=== PATIENT | male | born 2000 | race Caucasian/White ===

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

== ENCOUNTER 2022-09-14 11:58 | Inpatient (IN) | payer MEDICAID, SELFPAY ==
[2022-09-14] VITALS (8 sets, daily range): BP systolic 111–129; BP diastolic 61–91; PULSE 56–82; RESP 14–22; TEMP 36.4–37.1; O2SAT 97–100; BMI 16.7; BMI 17.2
--- NOTE | ~2022-09-14 | XR_ITS ---
EXAMINATION: XR CHEST CLINICAL INFORMATION: Status post chest tube removal COMPARISON: 09/17/2022 TECHNIQUE: Frontal view of the chest was obtained. FINDINGS: The right-sided pigtail catheter chest tube has been removed. The lungs are well expanded. There is no focal consolidation, edema, or effusion. No pneumothorax. The cardiomediastinal silhouette is within normal limits. No acute osseous abnormality. XR/XR chest 1V IMPRESSION: No acute pulmonary disease. No pneumothorax.
--- NOTE | ~2022-09-14 | XR_ITS ---
EXAMINATION: XR CHEST CLINICAL INFORMATION: Chest tube. COMPARISON: Chest radiograph dated 09/14/2022. TECHNIQUE: Frontal view of the chest was obtained. FINDINGS: Right-sided chest tube overlying the lung base. Tiny foci of adjacent soft tissue emphysema. Near-complete resolution of the previously seen right apical pneumothorax with a trace pneumothorax appearing to persist. No pleural effusion. Stable cardiomediastinal silhouette. No new airspace consolidation. XR/XR chest 1V IMPRESSION: 1. Right-sided chest tube with near-complete resolution of the previously seen right apical pneumothorax with a trace pneumothorax appearing to persist. 2. No new airspace consolidation.
--- NOTE | ~2022-09-14 | XR_ITS ---
EXAMINATION: XR CHEST CLINICAL INFORMATION: Chest pain COMPARISON: None available. TECHNIQUE: 2 views of the chest were obtained. FINDINGS: The cardiac and mediastinal contours are normal. There is a moderate right pneumothorax. No pleural effusion. Bony structures are unremarkable. XR/XR chest 2V IMPRESSION: Moderate right pneumothorax. Findings were communicated to Dr. Gonzalez by telephone on 09/14/2022 at 1336 hours.
--- NOTE | ~2022-09-14 | XR_ITS ---
EXAMINATION: XR CHEST CLINICAL INFORMATION: Follow-up right pneumothorax COMPARISON: 09/16/2022 TECHNIQUE: Frontal view of the chest was obtained. FINDINGS: Right-sided pigtail catheter in place. The lungs are well expanded. There is no focal consolidation, edema, or effusion. No definite pneumothorax identified. The cardiomediastinal silhouette is within normal limits. No acute osseous abnormality. XR/XR chest 1V IMPRESSION: Right-sided pigtail catheter in place. No definite pneumothorax identified.
--- NOTE | ~2022-09-14 | XR_ITS ---
EXAMINATION: XR CHEST CLINICAL INFORMATION: Follow-up right-sided pneumothorax. COMPARISON: Chest x-ray 07/17/2022. 3:25 PM TECHNIQUE: Frontal portable view of the chest was obtained. 5:02 PM FINDINGS: Right-sided chest tube in place with. Persistent small right apical pneumothorax unchanged in volume to prior exam today. No acute focal airspace opacity. No pleural effusion. Heart size normal. Cardiac mediastinal contours normal. No pulmonary vascular congestion XR/XR chest 1V IMPRESSION: Right-sided chest tube in place. Persistent small right apical pneumothorax unchanged since prior chest x-ray today.
--- NOTE | ~2022-09-14 | XR_ITS ---
EXAMINATION: XR CHEST CLINICAL INFORMATION: Follow-up pneumothorax COMPARISON: 09/15/2022 TECHNIQUE: Frontal view of the chest was obtained. FINDINGS: Lungs are well expanded. The right pigtail pleural drainage catheter is in stable position. There is a barely perceptible trace residual right apical pneumothorax without change since 09/15/2022. Lungs are clear. No airspace disease or pleural effusion. Cardiomediastinal silhouette has normal size and contour. Skeletal structures are normal. XR/XR chest 1V IMPRESSION: No new findings compared to 09/15/2022. There appears to be trace right apical pneumothorax with right chest tube in place.
--- NOTE | ~2022-09-14 | XR_ITS ---
EXAMINATION: XR CHEST CLINICAL INFORMATION: Post chest tube placement COMPARISON: None available. TECHNIQUE: Frontal view of the chest was obtained. FINDINGS: There is a pigtail chest tube at the right lung base. There is interval decrease in right pneumothorax. Small pneumothorax remains measuring maximum 1 cm at the right lung apex. The cardiac and mediastinal contours are normal. The lungs are clear. No pleural effusion. XR/XR chest 1V IMPRESSION: Interval decrease in right pneumothorax post chest tube placement.
--- NOTE | 2022-09-14 12:15 | ED_ITS ---
HPI - Chest Pain General Chief Complaint: General Medical <CYN Wilkins - Last Filed: 09/14/22 12:17> Stated Complaint: chest pains <CYN Wilkins - Last Filed: 09/14/22 12:17> Time Seen by Provider: 09/14/22 13:21 <CYN Wilkins - Last Filed: 09/14/22 12:17> Source: patient <Pardeep Murry MD - Last Filed: 09/14/22 15:39> Mode of arrival: ambulatory <Pardeep Murry MD - Last Filed: 09/14/22 15:39> Limitations: no limitations <Pardeep Murry MD - Last Filed: 09/14/22 15:39> History of Present Illness HPI narrative: 22-year-old male with no major medical problems presents with the feeling of a bubble in his chest. Symptoms started today spontaneously. Patient describes symptoms as moderate to severe. It is worse with exertion or leaning 4. Better with lying down. He also complains of mild right-sided chest pain. The pain does not radiate. Worse with respirations. He does report some shortness of breath. Denies any cough or mucus production. Denies any fevers, chills, sweats. This is new in onset he has never had this happen before. Patient denies any drugs, alcohol, trauma. <Pardeep Murry MD - Last Filed: 09/14/22 15:39> Related Data Home Medications: Home Medications Medication Instructions Recorded Confirmed No Known Home Meds 09/14/22 09/14/22 <CYN Wilkins - Last Filed: 09/14/22 12:17> Allergies/Adverse Reactions: Allergies Allergy/AdvReac Type Severity Reaction Status Date / Time No Known Allergies Allergy Verified 01/30/21 13:08 <CYN Wilkins - Last Filed: 09/14/22 12:17> [facility] Past Medical History Medical History: Medical History No known health problems <CYN Wilkins - Last Filed: 09/14/22 12:17> Social History Social History: Social History Advance Directives: No Advance Directives Information Provided: Yes <CYN Wilkins - Last Filed: 09/14/22 12:17> Physical Exam Vital Signs: Vital Signs: Last Vital Signs Temp 98.1 F 09/14/22 12:13 Pulse 76 09/14/22 15:21 Resp 14 09/14/22 15:21 BP 127/61 09/14/22 15:21 Pulse Ox 100 09/14/22 15:21 O2 Del Method Nasal Cannula 09/14/22 15:21 O2 Flow Rate 2 09/14/22 15:21 BMI result Body Mass Index 16.7 <CYN Wilkins - Last Filed: 09/14/22 12:17> Vital Signs: Last Vital Signs Temp 98.1 F 09/14/22 12:13 Pulse 76 09/14/22 15:21 Resp 14 09/14/22 15:21 BP 127/61 09/14/22 15:21 Pulse Ox 100 09/14/22 15:21 O2 Del Method Nasal Cannula 09/14/22 15:21 O2 Flow Rate 2 09/14/22 15:21 BMI result Body Mass Index 16.7 <Pardeep Murry MD - Last Filed: 09/14/22 15:39> GEN: Well developed, no acute distress, alert, oriented HEENT: Normocephalic, atraumatic, normal external ears, nose appears normal, no oropharyngeal edema or exudates Eyes: Normal to appearance Neck: Supple, no lymphadenopathy Respiratory: Talks in complete sentences, no respiratory distress, decreased breath sounds on the right lung castaneda Cardiovascular: Regular rate and rhythm, no murmurs rubs or gallops Abdomen: Soft, nontender, nondistended, no guarding, no rebound Back: No CVA tenderness Extremities: No clubbing cyanosis or edema Neurologic: No focal neurologic deficits, cranial nerves 2-12 intact, strength is 5/5 bilaterally, gait normal Skin: No rash <Pardeep Murry MD - Last Filed: 09/14/22 15:39> Course Course Course Narrative: RME - 22yo male presenting for chest pain which began earlier today while he was lifting items at work. Pain reproducible throughout chest wall on exam with normal breath sound bilaterally. Endorses pain with inspiration Plan: XR <CYN Wilkins - Last Filed: 09/14/22 12:17> Reevaluation(s) Reevaluation #1: X-ray identified a pneumothorax. I contacted Dr. Calabrese who will admit the patient. He is requesting that I place the chest tube. <Pardeep Murry MD - Last Filed: 09/14/22 15:39> Time: 14:29 <Pardeep Murry MD - Last Filed: 09/14/22 15:39> Reevaluation #2: chest tube inserted to suction. XR ordered <Pardeep Murry MD - Last Filed: 09/14/22 15:39> Time: 15:21 <Pardeep Murry MD - Last Filed: 09/14/22 15:39> Medications Administered Discontinued Medications Generic Name Dose Route Start Last Admin Trade Name Freq PRN Reason Stop Dose Admin Lidocaine/Epinephrine 20 ml 09/14/22 13:54 09/14/22 15:21 Lidocaine Hcl 1%/Epi 1:100,000 20 Ml Vial INFILTRATI 09/14/22 13:55 20 ml ONCE ONE Administration Morphine Sulfate 4 mg 09/14/22 13:54 09/14/22 14:49 Morphine Sulfate 4 Mg/Ml Cartridge IVPUSH 09/14/22 13:55 4 mg ONCE ONE Administration Protocol <CYN Wilkins - Last Filed: 09/14/22 12:17> Medications Administered Discontinued Medications Generic Name Dose Route Start Last Admin Trade Name Freq PRN Reason Stop Dose Admin Lidocaine/Epinephrine 20 ml 09/14/22 13:54 09/14/22 15:21 Lidocaine Hcl 1%/Epi 1:100,000 20 Ml Vial INFILTRATI 09/14/22 13:55 20 ml ONCE ONE Administration Morphine Sulfate 4 mg 09/14/22 13:54 09/14/22 14:49 Morphine Sulfate 4 Mg/Ml Cartridge IVPUSH 09/14/22 13:55 4 mg ONCE ONE Administration Protocol <Pardeep Murry MD - Last Filed: 09/14/22 15:39> Procedures Chest Tube Chest Tube 1: Chest Tube Location: right and anterior axillary line <Pardeep Murry MD - Last Filed: 09/14/22 15:39> Chest Tube Prep: Yes betadine prep (chlorhexadine), sterile drapes applied and other <Pardeep Murry MD - Last Filed: 09/14/22 15:39> Local Anesthetic: lidocaine 1% and with epi <Pardeep Murry MD - Last Filed: 09/14/22 15:39> Amount of anesthesia used (mL): 7 <Pardeep Murry MD - Last Filed: 09/14/22 15:39> Incision Made With: #11 blade <Pardeep Murry MD - Last Filed: 09/14/22 15:39> Post Procedure: sutured to skin <Pardeep Murry MD - Last Filed: 09/14/22 15:39> Tube Drainage: none <Pardeep Murry MD - Last Filed: 09/14/22 15:39> Post Procedure CXR?: Yes <Pardeep Murry MD - Last Filed: 09/14/22 15:39> Patient Tolerated Procedure: Yes <Pardeep Murry MD - Last Filed: 09/14/22 15:39> Medical Decision Making Medical Decision Making [facility] Narrative: 22-year-old male presents with acute shortness of breath, right-sided c hest pain. Examination revealed decreased breath sounds at the lung base. Otherwise, patient was not hypoxic, no acute distress, talking in complete sentences. Broad differential diagnosis is currently being considered. Patient will have serology,, chest x-ray, EKG <Pardeep Murry MD - Last Filed: 09/14/22 15:39> Differential Diagnosis Differential Diagnoses: The differential diagnosis associated with the presentation includes (Pneumonia, bronchitis, influenza, COVID, pleural effusion, pneumothorax) <Pardeep Murry MD - Last Filed: 09/14/22 15:39> Admission/Observation Consideration of admission/observation: Escalation of care including admission/observation considered <Pardeep Murry MD - Last Filed: 09/14/22 15:39> Consult Healthcare Provider Management of the patient was discussed with: Communications Consultant (Dr. Calabrese surgery) <Pardeep Murry MD - Last Filed: 09/14/22 15:39> Lab Data [facility] Lab Attestation statement: I reviewed the patient's lab results. <Pardeep Murry MD - Last Filed: 09/14/22 15:39> Result Diagrams: 09/14/22 14:16 09/14/22 14:16 <CYN Wilkins - Last Filed: 09/14/22 12:17> Labs: Lab Results 09/14/22 09/14/2209/14/23 Range/Units 13:23 13:23 13:23 WBC (4.8-10.8) X10*3/uL RBC (4.60-5.80) X10*6/uL Hgb (14.0-18.0) g/dl Hct (42.0-52.0) % MCV (80.0-98.0) fL MCH (27.0-33.0) pg MCHC (31.0-36.0) g/dl RDW (11.0-16.0) % Plt Count (160-400) X10*3/uL MPV (9.4-12.4) fL Immature Gran % (Auto) (0.0-0.4) % Neut % (Auto) (45-73) % Lymph % (Auto) (20-40) % [place] % (Auto) (2-11) % Eos % (Auto) (0-4) % Baso % (Auto) (0-2) % Lymph # (Auto) (1.2-4.9) X10*3/uL Flagler # (Auto) (0.1-1.2) X10*3/uL Eos # (Auto) (0.0-0.4) X10*3/uL Baso # (Auto) (0.0-0.2) X10*3/uL Abs Immat Gran (auto) (0.00-0.03) X10*3/uL Absolute Neuts (auto) (2.0-8.3) x10*3/uL Absolute Nucleated RBC (0.0-0.012) X10*3/uL Nucleated RBC % (auto) (0.0-0.2) /100WBC PT (10.0-13.1) SEC INR (0.9-1.1) APTT (26.0-36.4) SEC Sodium (135-145) mmol/L Potassium (3.3-5.1) mmol/L Chloride (96-108) mmol/L Carbon Dioxide (22-29) mmol/L Anion Gap (12-20) BUN (9-16) mg/dL Creatinine (0.5-1.4) mg/dL Estim Creat Clear Calc Estimated GFR Random Glucose (60-115) mg/dL Calcium (8.4-10.2) mg/dL COVID-19 (RUDY) Negative (Negative) COVID-19 Clin Com See Note Influenza Type A (SHYLA) Negative (Negative) Influenza Type B (SHYLA) Negative (Negative) Influenza A & B Note See Note S. pyogenes GrpA SHYLA Negative (Negative) 09/14/22 09/14/22 09/14/22 Range/Units 14:16 14:39 14:39 WBC 6.3 (4.8-10.8) X10*3/uL RBC 4.37 L (4.60-5.80) X10*6/uL Hgb 14.0 (14.0-18.0) g/dl Hct 41.7 L (42.0-52.0) % MCV 95.4 (80.0-98.0) fL MCH 32.0 (27.0-33.0) pg MCHC 33.6 (31.0-36.0) g/dl RDW 12.3 (11.0-16.0) % Plt Count 167 (160-400) X10*3/uL MPV 10.3 (9.4-12.4) fL Immature Gran % (Auto) 0.5 H (0.0-0.4) % Neut % (Auto) 72.5 (45-73) % Lymph % (Auto) 18.2 L (20-40) % Flagler % (Auto) 7.8 (2-11) % Eos % (Auto) 0.8 (0-4) % Baso % (Auto) 0.2 (0-2) % Lymph # (Auto) 1.2 (1.2-4.9) X10*3/uL Flagler # (Auto) 0.5 (0.1-1.2) X10*3/uL Eos # (Auto) 0.1 (0.0-0.4) X10*3/uL Baso # (Auto) 0.0 (0.0-0.2) X10*3/uL Abs Immat Gran (auto) 0.03 (0.00-0.03) X10*3/uL Absolute Neuts (auto) 4.6 (2.0-8.3) x10*3/uL Absolute Nucleated RBC 0.000 (0.0-0.012) X10*3/uL Nucleated RBC % (auto) 0.0 (0.0-0.2) /100WBC PT 11.8 (10.0-13.1) SEC INR 1.0 (0.9-1.1) APTT 30.6 (26.0-36.4) SEC Sodium 139 (135-145) mmol/L Potassium 4.2 (3.3-5.1) mmol/L Chloride 106 (96-108) mmol/L Carbon Dioxide 28 (22-29) mmol/L Anion Gap 9 L (12-20) BUN 18 H (9-16) mg/dL Creatinine 0.84 (0.5-1.4) mg/dL Estim Creat Clear Calc 107.9 Estimated GFR > 60 Random Glucose 81 (60-115) mg/dL Calcium 9.4 (8.4-10.2) mg/dL COVID-19 (RUDY) (Negative) COVID-19 Clin Com Influenza Type A (SHYLA) (Negative) Influenza Type B (SHYLA) (Negative) Influenza A & B Note S. pyogenes GrpA SHYLA (Negative) <CYN Wilkins - Last Filed: 09/14/22 12:17> Lab Results 09/14/22 09/14/22 09/14/22 Range/Units 13:23 13:23 13:23 WBC (4.8-10.8) X10*3/uL RBC (4.60-5.80) X10*6/uL Hgb (14.0-18.0) g/dl Hct (42.0-52.0) % MCV (80.0-98.0) fL MCH (27.0-33.0) pg MCHC (31.0-36.0) g/dl RDW (11.0-16.0) % Plt Count (160-400) X10*3/uL MPV (9.4-12.4) fL Immature Gran % (Auto) (0.0-0.4) % Neut % (Auto) (45-73) % Lymph % (Auto) (20-40) % Flagler % (Auto) (2-11) % Eos % (Auto) (0-4) % Baso % (Auto) (0-2) % Lymph # (Auto) (1.2-4.9) X10*3/uL Flagler # (Auto) (0.1-1.2) X10*3/uL Eos # (Auto) (0.0-0.4) X10*3/uL Baso # (Auto) (0.0-0.2) X10*3/uL Abs Immat Gran (auto) (0.00-0.03) X10*3/uL Absolute Neuts (auto) (2.0-8.3) x10*3/uL Absolute Nucleated RBC (0.0-0.012) X10*3/uL Nucleated RBC % (auto) (0.0-0.2) /100WBC PT (10.0-13.1) SEC INR (0.9-1.1) APTT (26.0-36.4) SEC Sodium (135-145) mmol/L Potassium (3.3-5.1) mmol/L Chloride (96-108) mmol/L Carbon Dioxide (22-29) mmol/L Anion Gap (12-20) BUN (9-16) mg/dL Creatinine (0.5-1.4) mg/dL Estim Creat Clear Calc Estimated GFR Random Glucose (60-115) mg/dL Calcium (8.4-10.2) mg/dL COVID-19 (RUDY) Negative (Negative) COVID-19 Clin Com See Note Influenza Type A (SHYLA) Negative (Negative) Influenza Type B (SHYLA) Negative (Negative) Influenza A & B Note See Note S. pyogenes GrpA SHYLA Negative (Negative) 09/14/22 09/14/22 09/14/22 Range/Units 14:16 14:39 14:39 WBC 6.3 (4.8-10.8) X10*3/uL RBC 4.37 L (4.60-5.80) X10*6/uL Hgb 14.0 (14.0-18.0) g/dl Hct 41.7 L (42.0-52.0) % MCV 95.4 (80.0-98.0) fL MCH 32.0 (27.0-33.0) pg MCHC 33.6 (31.0-36.0) g/dl RDW 12.3 (11.0-16.0) % Plt Count 167 (160-400) X10*3/uL MPV 10.3 (9.4-12.4) fL Immature Gran % (Auto) 0.5 H (0.0-0.4) % Neut % (Auto) 72.5 (45-73) % Lymph % (Auto) 18.2 L (20-40) % Flagler % (Auto) 7.8 (2-11) % Eos % (Auto) 0.8 (0-4) % Baso % (Auto) 0.2 (0-2) % Lymph # (Auto) 1.2 (1.2-4.9) X10*3/uL Flagler # (Auto) 0.5 (0.1-1.2) X10*3/uL Eos # (Auto) 0.1 (0.0-0.4) X10*3/uL Baso # (Auto) 0.0 (0.0-0.2) X10*3/uL Abs Immat Gran (auto) 0.03 (0.00-0.03) X10*3/uL Absolute Neuts (auto) 4.6 (2.0-8.3) x10*3/uL Absolute Nucleated RBC 0.000 (0.0-0.012) X10*3/uL Nucleated RBC % (auto) 0.0 (0.0-0.2) /100WBC PT 11.8 (10.0-13.1) SEC INR 1.0 (0.9-1.1) APTT 30.6 (26.0-36.4) SEC Sodium 139 (135-145) mmol/L Potassium 4.2 (3.3-5.1) mmol/L Chloride 106 (96-108) mmol/L Carbon Dioxide 28 (22-29) mmol/L Anion Gap 9 L (12-20) BUN 18 H (9-16) mg/dL Creatinine 0.84 (0.5-1.4) mg/dL Estim Creat Clear Calc 107.9 Estimated GFR > 60 Random Glucose 81 (60-115) mg/dL Calcium 9.4 (8.4-10.2) mg/dL COVID-19 (RUDY) (Negative) COVID-19 Clin Com Influenza Type A (SHYLA) (Negative) Influenza Type B (SHYLA) (Negative) Influenza A & B Note S. pyogenes GrpA SHYLA (Negative) <Pardeep Murry MD - Last Filed: 09/14/22 15:39> Independent Interpretation I performed an independent interpretation of an: EKG (Normal sinus rhythm heart rate 67, RSR prime pattern in V1 and V2. Normal intervals, no acute ST elevations or depressions) and Plain X-Ray (Approximately 40-50% pneumothorax on chest x-ray) <Pardeep Murry MD - Last Filed: 09/14/22 15:39> Interpretation: Repeat CXR successful placement of pigtail catheter with expansion of lung <Pardeep Murry MD - Last Filed: 09/14/22 15:39> Tests considered The following testing was considered but not selected: CT chest <Pardeep Murry MD - Last Filed: 09/14/22 15:39> Prescription Management I considered prescription management with: Pain Medication <Pardeep Murry MD - Last Filed: 09/14/22 15:39> Critical Care Time Critical Care Time Critical Care Time: Yes <Pardeep Murry MD - Last Filed: 09/14/22 15:39> Total Critical Care Time: 40 <Pardeep Murry MD - Last Filed: 09/14/22 15:39> Attestation: Critical care time the amount of approximately 40 minutes were performed at bedside assessment, conversation with family, review of medical data, consultation with surgeon, documentation, all outside the time spent during procedure. <Pardeep Murry MD - Last Filed: 09/14/22 15:39> Discharge Plan Discharge Clinical Impression: Spontaneous pneumothorax <CYN Wilkins - Last Filed: 09/14/22 12:17> Patient Disposition: Admitted As Inpatient <CYN Wilkins - Last Filed: 09/14/22 12:17>
--- NOTE | 2022-09-14 13:46 | ECG_ITS ---
Test Reason : cp/pneumo Blood Pressure : / mmHG Vent. Rate : 067 BPM Atrial Rate : 067 BPM P-R Int : 150 ms QRS Dur : 090 ms QT Int : 396 ms P-R-T Axes : 080 089 075 degrees QTc Int : 418 ms Normal sinus rhythm Normal ECG No previous ECGs available Referred By: Pardeep Murry Electronically Signed By:AALIYAH IVORY
[2022-09-14 13:51] LABS: IDNOW Serial# 08D9AD1C; Strep A Nucleic Acid Negative (Negative)
[2022-09-14 13:53] LABS: COVID-19 Test Negative (Negative); IDNOW Serial# BCCEAD1C
[2022-09-14 13:57] LABS: IDNOW Serial# 9DB6401D; Influenza A Negative (Negative); Influenza B2 Negative (Negative)
[2022-09-14 14:20] LABS: MANUAL DIFF FLAG NO
[2022-09-14 14:22] LABS: Basophils Percent Auto 0.2 % (0-2); Eosinophils Absolute Auto 0.1 X10*3/uL (0.0-0.4); Eosinophils Percent Auto 0.8 % (0-4); Hematocrit 41.7 % (42.0-52.0); Imm Gran Abs Auto 0.03 X10*3/uL (0.00-0.03); Imm Gran Pct Auto 0.5 % (0.0-0.4); Lymphocytes Absolute Auto 1.2 X10*3/uL (1.2-4.9); Lymphocytes Percent Auto 18.2 % (20-40); Mean Corpuscular HGB Conc 33.6 g/dl (31.0-36.0); Mean Corpuscular Volume 95.4 fL (80.0-98.0); Mean Platelet Volume 10.3 fL (9.4-12.4); Monocytes Absolute Auto 0.5 X10*3/uL (0.1-1.2); Monocytes Percent Auto 7.8 % (2-11); Neutrophils Absolute Auto 4.6 x10*3/uL (2.0-8.3); Neutrophils Percent Auto 72.5 % (45-73); Platelet Count 167 X10*3/uL (160-400); Red Blood Count 4.37 X10*6/uL (4.60-5.80); Red Cell Distribution Width 12.3 % (11.0-16.0); White Blood Count 6.3 X10*3/uL (4.8-10.8)
[2022-09-14] MEDS: Morphine Sulfate 4 MG/ML CARTRIDGE IVPUSH (14:49)
[2022-09-14 14:50] LABS: Prothrombin Time 11.8 SEC (10.0-13.1)
[2022-09-14 14:52] LABS: Partial Thromboplastin Time 30.6 SEC (26.0-36.4)
[2022-09-14 14:56] LABS: Anion Gap 9 (12-20); Blood Urea Nitrogen 18 mg/dL (9-16); Calcium 9.4 mg/dL (8.4-10.2); Carbon Dioxide 28 mmol/L (22-29); Chloride 106 mmol/L (96-108); Creatinine Clr Calc Pharmacy 107.9; Estimated Glomerular Filt Rate > 60; Glucose Random 81 mg/dL (60-115); Potassium 4.2 mmol/L (3.3-5.1); Sodium 139 mmol/L (135-145)
--- NOTE | 2022-09-14 15:07 | PC.NURSE ---
MD at bedside for Chest Tube placement. patient calm. on monitor. unlabores resp. skin pwd. 2l NC in place. nsr on monitor. tolerating proceedure well.
[2022-09-14] MEDS: Lidocaine HCl 1%/Epi 1:100,000 20 ML VIAL INFILTRATI (15:21)
--- NOTE | 2022-09-14 15:29 | PC.NURSE ---
PT CHANGED INTO HOSPITAL ATTIRE AND PREPPED FOR CHEST TUBE PLACEMENT. 20G IV PLACED IN RIGHT AC, PT WAS GIVEN MORPHINE 4MG IVP PRE PROCEDURE, LIDO 1:1,000,000 EPI ADM BY PROVIDER- SUCTION SET TO 40mmHg per provider order- vss pt resting comfortably with call prasad within reach - PLAN IS TO MOVE PT TO ED4 ONCE AVAILABLE, PT AWARE PLAN IS FOR ADMISSION
[2022-09-14] MEDS: Acetaminophen 325 MG TABLET 650 MG PO (18:47)
[2022-09-14] MEDS: Ketorolac Tromethamine 30 MG/ML VIAL IVPUSH (19:49)
[2022-09-14] MEDS: 0.9 % Sodium Chloride Flush 3 ML SYRINGE IVFLUSH (20:18)
[2022-09-15 03:00] VITALS: BP 125/64; PULSE 60; RESP 18; TEMP 36.5; O2SAT 97
[2022-09-15] MEDS: Ketorolac Tromethamine 30 MG/ML VIAL IVPUSH ×3 (06:28→22:31)
[2022-09-15] MEDS: 0.9 % Sodium Chloride Flush 3 ML SYRINGE IVFLUSH ×3 (07:16→22:33)
[2022-09-15 07:53] VITALS: BP 122/74; PULSE 58; RESP 18; TEMP 36.7; O2SAT 99
--- NOTE | 2022-09-15 07:53 | PHA.MEDREC ---
Pharmacy Consult ? Medication Reconciliation Pharmacy has completed the medication reconciliation.
--- NOTE | 2022-09-15 09:44 | MHC.CM.PN ---
Addendum entered by Antonella Eldridge 09/16/22 08:34: PCP AT [facility] LEFT PRACTICE, PT IS AWARE HE WILL NEED TO ESTABLISH WITH A NEW PROVIDER AT THAT PRACTICE. Original Note: CM MET WITH PT. LIVES WITH S/O IN AN APT. INDEPENDENT AT [place]. EMPLOYED F/T NO HCP BUT WILL THINK ABOUT DOING ONE. NO COVID VAX. PCP DR. MOLINA AT [facility]. DP: HOME, NO SERVICES ANTICIPATED. FAMILY WILL TRANSPORT HOME. CM WILL CONTINUE TO FOLLOW
--- NOTE | 2022-09-15 11:18 | P.HPGS_ITS ---
History of Present Illness History of Present Illness Date of Service: 09/15/22 Chief complaint: R ptx Narrative: Alfredo Peña I is a 22 year old male who presents to the ER because of acute onset of shortness of breath and right chest discomfort. Workup through the emergency room was most noteworthy for a moderately sized right pneumothorax. The patient has never had this before. He does do occasional heavy/strenuous activities at his place of employment. Minimal cigarette/social history Patient underwent by ER physician which many chest tube placement with full expansion of his lung as shown on postprocedure film. Chest tube this morning demonstrates no air leak in the Pleur-evac. Patient is having some discomfort from chest tube but otherwise no acute respiratory issues. A.m. chest x-ray is pending. [facility] Past Medical History Medical History No known health problems Social History Social History Household Members: Significant Other Housing: Apartment Do you presently have visiting nurse or other home services: No Patient Tobacco Use Status: Current everyday Tobacco user Cigarettes Per Day: 3 Patient Given Instructions on How to Stop Smoking: Yes (pt report marijuana/cigarette mix) Date Education Initiated: 09/14/22 Use of substances other than those prescribed or required for medical reasons: Yes Substance Use Type: Marijuana Currently Displaying Signs/Symptoms of Drug Intoxication Withdrawal: No Any prior treatment program specific to substance use: No Have you been hit, kicked, punched, or otherwise hurt by someone within the past year? If so, by whom?: No Do you feel safe in your current relationship?: Yes Is there a partner from a previous relationship who is making you feel unsafe now?: No Are you made to feel afraid or neglected: No Advance Directives: No Advance Directives Information Provided: Yes Do you have thoughts of harming others: None Do you have a plan to hurt others: No Plan Recently lost weight without trying: No Nutrition Risks: No Nutritional Risk Poor oral hygiene: No service: No Current occupational status: employed Meds Allergies Allergy/AdvReac Type Severity Reaction Status Date / Time No Known Allergies Allergy Verified 01/30/21 13:08 Active Medications: Current Medications Acetaminophen (Acetaminophen 325 Mg Tablet) 650 mg PO Q6H PRN PRN Reason: Pain, Mild (Pain Scale 1-3) Last Admin: 09/14/22 18:47 Dose: 650 mg Hydrocodone Bitart/Acetaminophen (Hydrocodone Bit/Acetam 5/325 Tablet) 1 tab PO Q4H PRN PRN Reason: Pain, Moderate (Pain Scale 4-6 Ketorolac Tromethamine (Ketorolac Tromethamine 30 Mg/Ml Vial) 30 mg IVPUSH Q6H PRN PRN Reason: Pain, Mild (Pain Scale 1-3) Stop: 09/19/22 16:40 Last Admin: 09/15/22 06:28 Dose: 30 mg Magnesium Hydroxide (Milk Of Magnesia 30 Ml Oral.Susp) 30 ml PO DAILY PRN PRN Reason: Constipation Ondansetron HCl (Ondansetron Hcl 4 Mg/2 Ml Vial) 4 mg IVPUSH Q8H PRN PRN Reason: Nausea and Vomiting Sodium Chloride (0.9 % Sodium Chloride Flush 3 Ml Syringe) [facility] Last Admin: 09/15/22 07:16 Dose: 3 ml Zolpidem Tartrate (Zolpidem Tartrate 5 Mg Tablet) 5 mg PO BEDTIME PRN PRN Reason: Insomnia Home Medications Medication Instructions Recorded Confirmed Last Taken Type No Known Home Meds 09/14/22 09/14/22 Unknown History Physical Exam Vital Signs: Vital Signs: Last Vital Signs Temp 98.0 F 09/15/22 07:53 Pulse 58 09/15/22 07:53 Resp 18 09/15/22 07:53 BP 122/74 09/15/22 07:53 Pulse Ox 99 09/15/22 07:53 O2 Del Method Room Air 09/15/22 07:53 O2 Flow Rate 2 09/14/22 17:33 BMI result Body Mass Index 17.2 Chest: Other: Breath sounds bilaterally. Chest tube site clean dry and intact. Results Results Labs: Short CBC 09/14/22 Range/Units 14:16 WBC 6.3 (4.8-10.8) X10*3/uL Hgb 14.0 (14.0-18.0) g/dl Hct 41.7 L (42.0-52.0) % Plt Count 167 (160-400) X10*3/uL BMP 09/14/22 14:39 Sodium 139 Potassium 4.2 Chloride 106 Carbon Dioxide 28 BUN 18 H Creatinine 0.84 Calcium 9.4 Assessment and Plan (1) Spontaneous pneumothorax: Status: Acute Plan I discussed with the patient and his mother was also present the tentative plan. If the lung remains fully expanded with no air leak, the chest tube will be placed to water seal overnight and repeat x-ray in the morning with possible chest tube removal if there is no air leak and the lung remains fully expanded on morning x-ray film. However should a pneumothorax recur and or an air-leak develops, patient may require a thorascopic lobectomy. All questions were answered. Time Spent With Patient Time: Total time managing care of this patient today ____ minutes. Quality Stroke Does the patient have a stroke diagnosis?: No VTE Prior VTE?: No VTE Risk Level:: Surgical - low VTE Device Contraindication: Treatment Not Indicated VTE Drug Contraindication: Treatment Not Indicated Procedures Date of Service Date of Service: 09/15/22
[2022-09-15 12:17] VITALS: BMI 17.7
[2022-09-15 15:18] VITALS: BP 115/63; PULSE 55; RESP 16; TEMP 36.9; O2SAT 96
[2022-09-15 19:46] VITALS: BP 124/78; PULSE 53; RESP 16; TEMP 36.7; O2SAT 98
[2022-09-15 23:25] VITALS: RESP 18
[2022-09-16 04:00] VITALS: BP 112/63; PULSE 57; RESP 16; TEMP 36.6; O2SAT 98
[2022-09-16] MEDS: 0.9 % Sodium Chloride Flush 3 ML SYRINGE IVFLUSH ×3 (07:29→22:43)
[2022-09-16 07:32] VITALS: BP 120/78; PULSE 53; RESP 16; TEMP 36.3; O2SAT 99
--- NOTE | 2022-09-16 08:45 | P.PNGS_ITS ---
Subjective Subjective Date of Service: 09/16/22 <Lyla House PA-C - Last Filed: 09/16/22 09:03> 09/16/22 <Mikal Calabrese MD - Last Filed: 09/16/22 09:20> Interval history: Still having pain with deep breaths, at chest tube site. Tolerating diet. Using IS but unable to get it past 1000. <Lyla House PA-C - Last Filed: 09/16/22 09:03> Physical Exam Vital Signs: Vital Signs: Last Vital Signs Temp 97.4 F 09/16/22 07:32 Pulse 53 09/16/22 07:32 Resp 16 09/16/22 07:32 BP 120/78 09/16/22 07:32 Pulse Ox 99 09/16/22 07:32 O2 Del Method Room Air 09/16/22 07:32 O2 Flow Rate 2 09/14/22 17:33 BMI result Body Mass Index 17.7 <Lyla House PA-C - Last Filed: 09/16/22 09:03> Const: General: comfortable, no acute distress and alert <Lyla House PA-C - Last Filed: 09/16/22 09:03> Orientation/consciousness: patient oriented x3 <ROMAN Panda Last Filed: 09/16/22 09:03> Resp: Effort & Inspection: normal respiratory effort and able to speak in complete sentences <Lyla House PA-C - Last Filed: 09/16/22 09:03> Auscultation: clear to auscultation bilaterally <Lyla House PA-C - Last Filed: 09/16/22 09:03> Skin: General skin exam: no rashes or lesions noted <ROMAN Panda Last Filed: 09/16/22 09:03> Neuro: General: patient oriented x3 <ROMAN Panda Last Filed: 09/16/22 09:03> Extrem: General: Yes no clubbing, cyanosis or edema <ROMAN Panda Last Filed: 09/16/22 09:03> Objective Data Active Medications Acetaminophen (Acetaminophen 325 Mg Tablet) 650 mg PO Q6H PRN PRN Reason: Pain, Mild (Pain Scale 1-3) Last Admin: 09/14/22 18:47 Dose: 650 mg Documented By: EDDIE Hydrocodone Bitart/Acetaminophen (Hydrocodone Bit/Acetam 5/325 Tablet) 1 tab PO Q4H PRN PRN Reason: Pain, Moderate (Pain Scale 4-6 Ketorolac Tromethamine (Ketorolac Tromethamine 30 Mg/Ml Vial) 30 mg IVPUSH Q6H PRN PRN Reason: Pain, Mild (Pain Scale 1-3) Stop: 09/19/22 16:40 Last Admin: 09/15/22 22:31 Dose: 30 mg Documented By: OZORALB Magnesium Hydroxide (Milk Of Magnesia 30 Ml Oral.Susp) 30 ml PO DAILY PRN PRN Reason: Constipation Ondansetron HCl (Ondansetron Hcl 4 Mg/2 Ml Vial) 4 mg IVPUSH Q8H PRN PRN Reason: Nausea and Vomiting Sodium Chloride (0.9 % Sodium Chloride Flush 3 Ml Syringe) [facility] Last Admin: 09/16/22 07:29 Dose: 3 ml Documented By: YAMILET Zolpidem Tartrate (Zolpidem Tartrate 5 Mg Tablet) 5 mg PO BEDTIME PRN PRN Reason: Insomnia <Lyla House PA-C - Last Filed: 09/16/22 09:03> Labs CBC & Chem 7: 09/14/22 14:16 09/14/22 14:39 <Lyla House PA-C - Last Filed: 09/16/22 09:03> Procedures Date of Service Date of Service: 09/16/22 <ROMAN Panda Last Filed: 09/16/22 09:03> Progress Note: A&P Assessment and plan (1) Spontaneous pneumothorax: Status: Acute <ROMAN Panda Last Filed: 09/16/22 09:03> Assessment and Plan: 22 year old male admitted with right spontaneous pneumothorax. Chest tube inserted on 09/14. CXR this am shows barely perceptible trace residual right apical pneumothorax without change since 09/15/2022 and no air leak. Chest tube placed to water seal. Repeat x-ray tomorrow morning with possible chest tube removal if there is no air leak and the lung remains fully expanded on f/u film. However should a pneumothorax recur and or an air-leak develops, patient may require a thorascopic lobectomy. Continue IS use, pain management to promote deep breathing. <Lyla House PA-C - Last Filed: 09/16/22 09:03> Time Spent With Patient Time: Total time managing care of this patient today ____ minutes. <Lyla House PA-C - Last Filed: 09/16/22 09:03> Quality Stroke Does the patient have a stroke diagnosis?: No <Lyla House PA-C - Last Filed: 09/16/22 09:03> VTE Prior VTE?: No <Lyla House PA-C - Last Filed: 09/16/22 09:03> VTE Risk Level:: Surgical - low <Lyla House PA-C - Last Filed: 09/16/22 09:03> VTE Device Contraindication: Treatment Not Indicated <Lyla House PA-C - Last Filed: 09/16/22 09:03> VTE Drug Contraindication: Treatment Not Indicated <Lyla House PA-C - Last Filed: 09/16/22 09:03>
[2022-09-16] MEDS: Ketorolac Tromethamine 30 MG/ML VIAL IVPUSH ×2 (08:47→22:40)
[2022-09-16 15:25] VITALS: BP 122/78; PULSE 73; RESP 18; TEMP 36.7; O2SAT 99
--- NOTE | 2022-09-16 16:01 | MHC.CM.PN ---
per rounds no dc date at this time dc plan will be for home
[2022-09-16 19:28] VITALS: BP 115/67; PULSE 65; RESP 16; TEMP 36.8; O2SAT 100
[2022-09-17 03:04] VITALS: BP 130/60; PULSE 65; RESP 16; TEMP 36; O2SAT 98
[2022-09-17] MEDS: 0.9 % Sodium Chloride Flush 3 ML SYRINGE IVFLUSH (07:20)
[2022-09-17 07:26] VITALS: BP 141/74; PULSE 55; RESP 18; TEMP 36.2; O2SAT 100
--- NOTE | 2022-09-17 09:08 | P.PNGS_ITS ---
Subjective Subjective Date of Service: 09/17/22 <Lyla House PA-C - Last Filed: 09/17/22 09:17> 09/17/22 <Mikal Calabrese MD - Last Filed: 09/17/22 10:33> Interval history: Feeling better. Some pain mostly at chest tube site. Denies SOB. <Lyla House PA-C - Last Filed: 09/17/22 09:17> Feeling better. Some pain mostly at chest tube site. Denies SOB. To DC chest tube now and follow-up chest x-ray later this morning. If it is good, plan for DC home. Discharge instructions were reviewed with the patient. <Mikal Calabrese MD - Last Filed: 09/17/22 10:33> Physical Exam Vital Signs: Vital Signs: Last Vital Signs Temp 97.2 F 09/17/22 07:26 Pulse 55 09/17/22 07:26 Resp 18 09/17/22 07:26 BP 141/74 H 09/17/22 07:26 Pulse Ox 100 09/17/22 07:26 O2 Del Method Room Air 09/17/22 07:26 O2 Flow Rate 2 09/14/22 17:33 BMI result Body Mass Index 17.7 <ROMAN Panda Last Filed: 09/17/22 09:17> Const: General: comfortable, no acute distress and alert <Lyla House PA-C - Last Filed: 09/17/22 09:17> Orientation/consciousness: patient oriented x3 <Lyla House PA-C - Last Filed: 09/17/22 09:17> Chest: Other: R chest tube intact to water seal <Lyla House PA-C - Last Filed: 09/17/22 09:17> Resp: Effort & Inspection: normal respiratory effort <ROMAN Panda Last Filed: 09/17/22 09:17> Auscultation: clear to auscultation bilaterally <ROMAN Panda Last Filed: 09/17/22 09:17> Skin: General skin exam: no rashes or lesions noted <ROMAN Panda Last Filed: 09/17/22 09:17> Neuro: General: patient oriented x3 and moves all extremities <ROMAN Panda Last Filed: 09/17/22 09:17> Objective Data Active Medications Acetaminophen (Acetaminophen 325 Mg Tablet) 650 mg PO Q6H PRN PRN Reason: Pain, Mild (Pain Scale 1-3) Last Admin: 09/14/22 18:47 Dose: 650 mg Documented By: EDDIE Hydrocodone Bitart/Acetaminophen (Hydrocodone Bit/Acetam 5/325 Tablet) 1 tab PO Q4H PRN PRN Reason: Pain, Moderate (Pain Scale 4-6 Ketorolac Tromethamine (Ketorolac Tromethamine 30 Mg/Ml Vial) 30 mg IVPUSH Q6H PRN PRN Reason: Pain, Mild (Pain Scale 1-3) Stop: 09/19/22 16:40 Last Admin: 09/16/22 22:40 Dose: 30 mg Documented By: ALISON Magnesium Hydroxide (Milk Of Magnesia 30 Ml Oral.Susp) 30 ml PO DAILY PRN PRN Reason: Constipation Ondansetron HCl (Ondansetron Hcl 4 Mg/2 Ml Vial) 4 mg IVPUSH Q8H PRN PRN Reason: Nausea and Vomiting Sodium Chloride (0.9 % Sodium Chloride Flush 3 Ml Syringe) 3 ml IVFLUSH QSHIFT [facility] Last Admin: 09/17/22 07:20 Dose: 3 ml Documented By: MIRLANDE Zolpidem Tartrate (Zolpidem Tartrate 5 Mg Tablet) 5 mg PO BEDTIME PRN PRN Reason: Insomnia <Lyla House PA-C - Last Filed: 09/17/22 09:17> Labs CBC & Chem 7: 09/14/22 14:16 09/14/22 14:39 <ROMAN Panda Last Filed: 09/17/22 09:17> Procedures Date of Service Date of Service: 09/17/22 <ROMAN Panda Last Filed: 09/17/22 09:17> Progress Note: A&P Assessment and plan (1) Spontaneous pneumothorax: Status: Acute <ROMAN Panda Last Filed: 09/17/22 09:17> Assessment and Plan: 22 year old male admitted with right spontaneous pneumothorax. Chest tube inserted on 09/14 with near resolution and placed to water seal yesterday. F/u CXR this am no definite pneumothorax identified. Will remove today, repeat CXR 1hr following. If no recurrence, stable for discharge to home today with f/u in office in 1 week. Patient comfo rtable with plan. <Lyla House PA-C - Last Filed: 09/17/22 09:17> Time Spent With Patient Time: Total time managing care of this patient today ____ minutes. <Lyla House PA-C - Last Filed: 09/17/22 09:17> Quality Stroke Does the patient have a stroke diagnosis?: No <Lyla House PA-C - Last Filed: 09/17/22 09:17> VTE Prior VTE?: No <Lyla House PA-C - Last Filed: 09/17/22 09:17> VTE Risk Level:: Surgical - low <Lyla House PA-C - Last Filed: 09/17/22 09:17> VTE Device Contraindication: Treatment Not Indicated <Lyla House PA-C - Last Filed: 09/17/22 09:17> VTE Drug Contraindication: Treatment Not Indicated <Lyla House PA-C - Last Filed: 09/17/22 09:17>
--- NOTE | 2022-09-17 12:23 | MHC.CM.PN ---
Male 22 DX Pneumothorax S/P Chest tube; which has been removed. Patient has been cleared to dc s/p CXR. He is discharged to home self-care. He has been instructed to call his PCP office to schedule an appointment with a New PCP. His PCP has left the practice. Patient has arranged for transportation home.
--- NOTE | 2022-09-17 12:33 | PM.DS ---
DS: Providers Provider Date of Service: 09/17/22 Date of admission: 09/14/22 16:36 Date of discharge: 09/17/22 Primary care physician: Unknown Physician Attending physician on admission: Mikal Calabrese DS: Diagnosis Discharge Diagnosis (1) Spontaneous pneumothorax: Status: Acute DS: Summary Hospital Course Hospital Course: HPI AT ADMISSION: Alfredo Peña I is a 22 year old male who presents to the ER because of acute onset of shortness of breath and right chest discomfort.? Workup through the emergency room was most noteworthy for a moderately sized right pneumothorax.? The patient has never had this before.? He does do occasional heavy/strenuous activities at his place of employment.? Minimal cigarette/social history. Patient underwent by ER physician which many chest tube placement with full expansion of his lung as shown on postprocedure film. HOSPITAL COURSE: The patient was admitted by Dr. Calabrese for further treatment of the spontaneous pneumothorax. The chest tube was continued to suction with pain control to promote deep inspiration and IS use. The lung remained fully expanded on f/u CXRs with no air leak in the Pleur-evac the two following mornings. His pain improved and vitals remained stable. The chest tube was therefore placed to water seal. F/u CXR the following morning showed no pneumothorax. The chest tube was therefore removed without difficulty and occlusive dressing placed. A CXR was repeated post removal and the lung remained fully expanded. He was therefore discharged to home on 09/17/22 with f/u in the office in 1 week. Status at Discharge Functional status at discharge: independent ambulation Overall status at discharge: patient is back to baseline Time Spent with Patient Time attestation: Total time managing care of this patient today ____ minutes. Discharge coordination time: Less than 30 minutes Quality: Safe Use of Opioids Does Pt have an Active Cancer Diagnosis on the Problem List?: No Quality: Stroke Does the patient have a stroke diagnosis?: No Physical Exam Vital Signs: Vital Signs: Last Vital Signs Temp 97.2 F 09/17/22 07:26 Pulse 55 09/17/22 07:26 Resp 18 09/17/22 07:26 BP 141/74 H 09/17/22 07:26 Pulse Ox 100 09/17/22 07:26 O2 Del Method Room Air 09/17/22 07:26 O2 Flow Rate 2 09/14/22 17:33 BMI result Body Mass Index 17.7 Const: General: healthy appearing, comfortable, no acute distress and alert Orientation/consciousness: patient oriented x3 Chest: Other: occlusive dressing in place to right lower lateral chest Resp: Effort & Inspection: normal respiratory effort Skin: General skin exam: no rashes or lesions noted Neuro: General: patient oriented x3 Discharge Plan Discharge Anticipated Discharge Date/Time: 09/17/22 13:05 Patient Disposition: Home, Self-Care Discharge Diagnosis: spontaneous pneumothorax Referrals: Mikal Calabrese MD [Physician] - 1 Week Physician,Kana Solares [Primary Care Provider] - 1 Week Discharge Medications: Continued No Known Home Meds Discharge Orders: Discharge Order (Routine); Ordered 09/17/22 Ordered By: Lyla House Diet: Advance to usual diet Activity on Discharge: As tolerated Stand Alone Forms: Patient Portal Discharge page, Work/School Release Activity Restrictions/Additional Instructions: Ok to shower 48 hours after chest tube removal. Remove dressings in 2 days and replace. Follow up in office with Dr. Calabrese in 1 week. ([phone]) No heavy lifting (>10lbs) or strenuous activity! Call Your Doctor If: -Your temperature exceeds 101.5? F -You experience excessive pain or swelling -You have an unexpected reaction to medication -You experience shortness of breath -Your incision shows signs of infection such as increased redness, swelling, excessive pain, drainage (light blood or clear fluid is normal) or heat Care Plan Goals: Return to baseline health and resume normal activities following recovery period. Health Concerns: spontanenous pneumothorax Plan of Treatment: Chest tube placement & subsequent removal, pain control, incentive spirometer F/u in office with Dr. Calabrese Smoking cessation Assessment: Resolved, doing well Discharge Date/Time: 09/17/22 12:46
== END 2022-09-17 12:46 | disposition home or self-care (01) | DRG 143 ==
LOC: HO.ED 15:52 → HO.EDOVER 16:50 → HO.S3 17:05
PROVIDERS: Emergency Medicine; Admitting Provider Surgery; Emergency Provider Emergency Medicine; Visit Provider Surgery
DX: J93.83 Other pneumothorax (principal); F17.210 Nicotine dependence, cigarettes, uncomplicated; Z20.822 Contact with and (suspected) exposure to COVID-19; Z71.6 Tobacco abuse counseling
CPT/HCPCS: 36415; 71045; 71046; 80048; 85025; 85610; 85730; 87502; 87635; 87651; 93005; 99284; J1885; J2270

== ENCOUNTER → 2022-09-24 11:31 | Outpatient (BNVA) | payer MEDICAID, SELFPAY | PROVIDERS: Visit Provider Surgery ==

== ENCOUNTER 2023-07-12 14:49 | Emergency (ER) | payer OTHER, SELFPAY ==
--- NOTE | ~2023-07-12 | US_ITS ---
EXAMINATION: US CHEST CLINICAL INFORMATION: Left chest wall mass. Unknown growth under left nipple. COMPARISON: CXR from 09/17/2022. TECHNIQUE: Sonographic imaging of the left chest was performed in the area of concern by the mechanical engineering technologist using a high-resolution linear transducer. Grayscale images and color Doppler images are obtained. FINDINGS: Mildly heterogeneous hypoechoic tissue is present deep to the left nipple. This is confined to the subcutaneous tissue and does not involve the underlying pectoralis muscle orbits. The area of concern measures approximately 2.5 cm transverse, 0.7 cm AP and 3.1 cm craniocaudal. There is no fluid collection within the chest wall. The color Doppler images show mild vascularity of the affected tissue. A brief imaging evaluation of the right retroareolar region shows no soft tissue abnormality. US/US chest IMPRESSION: There is asymmetric soft tissue prominence in the left retroareolar region. A nodular glandular, florid phase of gynecomastia could have this appearance. Otherwise, the examined soft tissues are unremarkable.
[2023-07-12 15:21] VITALS: BP 123/69; PULSE 62; RESP 16; TEMP 36.8; O2SAT 98; BMI 19.3
--- NOTE | 2023-07-12 15:21 | ED_ITS ---
HPI - General Adult General Chief complaint: Skin/Abscess/Foreign Body Stated complaint: L nipple swollen/pain Time Seen by Provider: 07/12/23 17:49 Source: patient Mode of arrival: ambulatory Limitations: no limitations History of Present Illness HPI narrative: Patient is a 22 year old assigned male at with a history of spontaneous pneumothroax presenting to the emergency department today with a mass behind his left nipple. Patient states that over the last month he has noticed a lump forming behind his left nipple. Patient denies any nipple discharge. Patient denies any steroid or growth hormone use. Patient states that he does not take any medications. Patient denies any dizziness, lightheadedness, abdominal pain, nausea, vomiting, fever, chills, blurry vision, double vision, loss of vision, chest pain, difficulty breathing, shortness of breath, back pain, night sweats, pain with urination, increased urinary frequency, increased urinary urgency, blood in his urine or stool, syncope or a near syncopal episode, recent trauma or falls, bowel incontinence, bladder incontinence, bowel retention, bladder retention, or any other complaints at this time. Onset (ago): month(s) (1) Location: left (breast) Radiation: non-radiation Severity: mild Relieving factors: none Exacerbating factors: none Associated symptoms: denies other symptoms Treatments prior to arrival: none Related Data Home Medications Medication Instructions Recorded Confirmed No Known Home Meds 09/14/22 09/14/22 Allergies Allergy/AdvReac Type Severity Reaction Status Date / Time No Known Allergies Allergy Verified 07/12/23 15:25 Review of Systems 2 Constitutional: Constitutional: Reports no additional constitutional complaints, Denies chills, Denies fever(s) and Denies night sweats Eyes: Eyes: Reports no additional eye complaints, Denies blurry vision, Denies change in vision, Denies diplopia, Denies eye discharge, Denies loss of vision and Denies eye pain ENT: Denies dizziness Cardiovascular: Cardiovascular: Reports no additional cardiovascular complaints, Denies chest pain, Denies lightheadedness, Denies Loss of Consciousness and Denies dyspnea Respiratory: Respiratory: Reports no additional respiratory complaints and Denies dyspnea Gastrointestinal: Gastrointestinal: Reports no additional gastrointestinal complaints, Denies abdominal pain, Denies melena, Denies hematochezia, Denies change in bowel habits and Denies change in stool character Genitourinary: Genitourinary: Reports no additional male genitourinary complaints, Denies hematuria, Denies oliguria, Denies difficulty urinating, Denies dysuria, Denies urinary frequency, Denies urinary hesitancy, Denies urinary incontinence and Denies urinary urgency Musculoskeletal: Musculoskeletal: Reports no additional musculoskeletal complaints, Denies numbness and Denies tingling Comments: mass behind left nipple Neurologic: Denies dizziness, Denies loss of vision, Denies numbness and Denies tingling Psychiatric: Psychiatric: Reports no additional psychiatric complaints Endocrine: Endocrine: Reports no additional endocrine complaints Hematologic/Lymphatic: Hematologic/Lymphatic: Reports no additional hematologic/lymphatic complaints Allergic/Immunologic: Allergic/Immunologic: Reports no additional allergic/immunologic complaints PMFSH Past Medical History Attestation statement: The following information was validated with the patient. Source: old records reviewed and nursing notes reviewed Medical History No known health problems Social History Social History Household Members: Significant Other Housing: Apartment Do you presently have visiting nurse or other home services: No Patient Tobacco Use Status: Current everyday Tobacco user Cigarettes Per Day: 3 Substance Use Type: Marijuana service: No Current occupational status: employed Physical Exam ED Vital Signs: Vital Signs - 24 hr 07/12/23 15:21 Temperature 98.3 F Pulse Rate 62 Respiratory Rate 16 Blood Pressure 123/69 Pulse Oximetry 98 Oxygen Delivery Method Room Air BMI result Body Mass Index 19.3 Const General: cooperative, no acute distress, alert and awake Nutritional Appearance: well nourished Orientation/consciousness: patient oriented x3 Limitations: no limitations [facility] Head: Yes normal to inspection and Yes atraumatic Ears: hearing grossly normal bilaterally and external ears normal General nose exam: Normal external nose present, no nasal discharge noted and no epistaxis Face and sinus: Yes normal facial exam, No abrasion and No laceration Mouth: Normal oral and palatal mucosa present, no drooling and no muffled voice Eyes General: appearance normal, both eyes and all related structures Periorbital: periorbital findings normal Eyelids: Yes eyelids normal Conjunctivae: conjunctivae normal Pupils: Equal, round and reactive pupils present EOM: EOMs intact bilaterally Neck Neck: Yes normal visual inspection, Yes full ROM and Yes no lymphadenopathy Chest Other: palpable mass felt behind the left nipple approximately 3cm Resp Effort & Inspection: normal respiratory effort and able to speak in complete sentences GI Inspection: Yes normal to inspection Neuro General: patient oriented x3 and moves all extremities Cranial nerves: Yes Equal, round and reactive pupils present Cognition (Neuro): normal cognition Motor exam (neuro): 5/5 motor strength present throughout Sensory Exam: Normal double simultaneous stimulation for sensation Coordination: [id number] test normal Extrem General: Yes normal to inspection, Yes full ROM and Yes capillary refill normal Psych Appearance: grossly normal Mental Status: mental status grossly normal Affect: normal affect Attitude: cooperative Thought process: Normal thought process present Thought content: Normal thought content present Insight: Good insight present (Psych) Course Course Course Narrative: RME performed by Yi Wooten PA-C. Patient is a 22 year old assigned male at presenting to the emergency department with a mass behind his left nipple. Detailed physical exam and review of systems are deferred to the [facility] office supervisor. Imaging ordered. Patient placed back in the waiting room pending room availability and results. Medical Decision Making Medical Decision Making MDM Narrative: Patient is a 22 year old assigned male at with a history of spontaneous pneumothorax presenting to the emergency department today with a left nipple mass. Patient's physical exam was as noted in the physical exam portion of this note. Patient's blood work was unremarkable. Patient's left chest wall US showed asymmetric soft tissue prominence in the left retroareolar region. Radiologist states that a nodular glandular, florid phase of gynecomastia could have this appearance. I explained my physical exam findings as well as all test results to the patient. I answered all questions asked by the patient. I stressed the importance of the patient following up with his primary care provider and a general surgeon / breast center. I stressed the importance of the patient returning to the emergency department immediately if his symptoms were to worsen or if he were to develop any dizziness, shortness of breath, difficulty breathing, chest pain, blurry vision, loss of vision, nausea, vomiting, abdominal pain, fever, chills, back pain, or any other complaints. Patient verbalized agreement and understanding with this treatment plan and discharge. Patient is in the and has been stationed out in [place]. Patient given a copy of his note, labs, US report, and US images on a disc to take with him out to [place]. Differential Diagnosis Differential Diagnoses: The differential diagnosis associated with the presentation includes Breast mass Growth behind left nipple Gynecomastia Admission/Observation Consideration of admission/observation: Escalation of care including admission/observation considered Patient would have been admitted to the hospital had his work up had any findings where hospital admission was appropriate and his clinical presentation warranted hospital admission. Lab Data [facility] Lab Attestation statement: I reviewed the patient's lab results. My interpretation of these results are in the [facility] Rationale portion of this note. 07/12/23 15:33 07/12/23 15:33 Labs: Lab Results 07/12/23 Range/Units 15:33 WBC 3.9 L (4.8-10.8) X10*3/uL RBC 4.92 (4.60-5.80) X10*6/uL Hgb 15.8 (14.0-18.0) g/dl Hct 45.7 (42.0-52.0) % MCV 92.9 (80.0-98.0) fL MCH 32.1 (27.0-33.0) pg MCHC 34.6 (31.0-36.0) g/dl RDW 12.2 (11.0-16.0) % Plt Count 184 (160-400) X10*3/uL MPV 10.1 (9.4-12.4) fL Immature Gran % (Auto) 0.5 H (0.0-0.4) % Neut % (Auto) 57.6 (45-73) % Lymph % (Auto) 29.7 (20-40) % Metcalfe % (Auto) 11.1 H (2-11) % Eos % (Auto) 0.8 (0-4) % Baso % (Auto) 0.3 (0-2) % Lymph # (Auto) 1.2 (1.2-4.9) X10*3/uL Metcalfe # (Auto) 0.4 (0.1-1.2) X10*3/uL Eos # (Auto) 0.0 (0.0-0.4) X10*3/uL Baso # (Auto) 0.0 (0.0-0.2) X10*3/uL Abs Immat Gran (auto) 0.02 (0.00-0.03) X10*3/uL Absolute Neuts (auto) 2.2 (2.0-8.3) x10*3/uL Absolute Nucleated RBC 0.000 (0.0-0.012) X10*3/uL Nucleated RBC % (auto) 0.0 (0.0-0.2) /100WBC ESR 2 (0-15) MM/HR Sodium 142 (135-145) mmol/L Potassium 3.7 (3.3-5.1) mmol/L Chloride 106 (96-108) mmol/L Carbon Dioxide 31 H (22-29) mmol/L Anion Gap 9 L (12-20) BUN 12 (9-16) mg/dL Creatinine 0.84 (0.5-1.4) mg/dL Estim Creat Clear Calc 128.1 Estimated GFR > 60 Random Glucose 70 (60-115) mg/dL Calcium 9.8 (8.4-10.2) mg/dL Total Bilirubin 0.8 (0.0-1.0) mg/dL AST 24 (5-37) U/L ALT 35 (0-40) U/L Alkaline Phosphatase 68 (39-117) U/L C-Reactive Protein < 0.10 (< or = 0.50) mg/dL Total Protein 7.0 (6.5-8.0) g/dL Albumin 4.5 (3.5-5.0) g/dL Independent Interpretation I performed an independent interpretation of an: Ultrasound Interpretation: My interpretation is in agreement with the radiologist's impression of this imaging study. - EXAMINATION: US CHEST CLINICAL INFORMATION: Left chest wall mass. Unknown growth under left nipple. COMPARISON: CXR from 09/17/2022. TECHNIQUE: Sonographic imaging of the left chest was performed in the area of concern by the dairy technologist using a high-resolution linear transducer. Grayscale images and color Doppler images are obtained. FINDINGS: Mildly heterogeneous hypoechoic tissue is present deep to the left nipple. This is confined to the subcutaneous tissue and does not involve the underlying pectoralis muscle orbits. The area of concern measures approximately 2.5 cm transverse, 0.7 cm AP and 3.1 cm craniocaudal. There is no fluid collection within the chest wall. The color Doppler images show mild vascularity of the affected tissue. A brief imaging evaluation of the right retroareolar region shows no soft tissue abnormality. US/US chest IMPRESSION: There is asymmetric soft tissue prominence in the left retroareolar region. A nodular glandular, florid phase of gynecomastia could have this appearance. Otherwise, the examined soft tissues are unremarkable. Dictated By: Jose G Mike MD Signed By: Electronically signed by Jose G Mike MD 07/12/23 9175 Radiology Impression Discussion of test interpretation with radiology: I have reviewed the radiologist's reading. Discharge Plan Discharge Clinical Impression: Gynecomastia, Breast lump or mass Patient Disposition: Home, Self-Care Instructions: Breast Mass (ED), Gynecomastia (ED) Additional Instructions: Follow up with your primary care provider and a general surgeon / breast center. Return to the emergency department immediately if your symptoms worsen or if you develop any dizziness, shortness of breath, difficulty breathing, chest pain, blurry vision, loss of vision, nausea, vomiting, abdominal pain, fever, chills, back pain, or any other complaints. Prescriptions: No Action No Known Home Meds Referrals: [facility] [place]] (Call to establish and follow up with a general surgeon / breast health center.) [facility] [place] (Call to establish and follow up with a primary care provider. If you already have a primary care provider, please follow up with them.) [facility] [place] Group] (Call to establish and follow up with a primary care provider. If you already have a primary care provider, please follow up with them.) [facility] [place] Group] (Call to establish and follow up with a primary care provider. If you already have a primary care provider, please follow up with them.) Print Language: Uzbek
[2023-07-12 15:37] LABS: MANUAL DIFF FLAG NO
[2023-07-12 15:43] LABS: Basophils Percent Auto 0.3 % (0-2); Eosinophils Percent Auto 0.8 % (0-4); Hematocrit 45.7 % (42.0-52.0); Hemoglobin 15.8 g/dl (14.0-18.0); Imm Gran Abs Auto 0.02 X10*3/uL (0.00-0.03); Imm Gran Pct Auto 0.5 % (0.0-0.4); Lymphocytes Absolute Auto 1.2 X10*3/uL (1.2-4.9); Lymphocytes Percent Auto 29.7 % (20-40); Mean Corpuscular HGB Conc 34.6 g/dl (31.0-36.0); Mean Corpuscular Hemoglobin 32.1 pg (27.0-33.0); Mean Corpuscular Volume 92.9 fL (80.0-98.0); Mean Platelet Volume 10.1 fL (9.4-12.4); Monocytes Absolute Auto 0.4 X10*3/uL (0.1-1.2); Monocytes Percent Auto 11.1 % (2-11); Neutrophils Absolute Auto 2.2 x10*3/uL (2.0-8.3); Neutrophils Percent Auto 57.6 % (45-73); Platelet Count 184 X10*3/uL (160-400); Red Blood Count 4.92 X10*6/uL (4.60-5.80); Red Cell Distribution Width 12.2 % (11.0-16.0); White Blood Count 3.9 X10*3/uL (4.8-10.8)
[2023-07-12 16:00] LABS: Alanine Aminotransferase 35 U/L (0-40); Albumin Level 4.5 g/dL (3.5-5.0); Alkaline Phosphatase 68 U/L (39-117); Anion Gap 9 (12-20); Aspartate Amino Transferase 24 U/L (5-37); Bilirubin Total 0.8 mg/dL (0.0-1.0); Blood Urea Nitrogen 12 mg/dL (9-16); C Reactive Protein < 0.10 mg/dL (< or = 0.50); Calcium 9.8 mg/dL (8.4-10.2); Carbon Dioxide 31 mmol/L (22-29); Chloride 106 mmol/L (96-108); Creatinine Clr Calc Pharmacy 128.1; Estimated Glomerular Filt Rate > 60; Glucose Random 70 mg/dL (60-115); Potassium 3.7 mmol/L (3.3-5.1); Sodium 142 mmol/L (135-145)
[2023-07-12 16:42] LABS: Erythrocyte Sedimentation Rate 2 MM/HR (0-15)
== END 2023-07-12 18:11 | disposition home or self-care (01) ==
PROVIDERS: Physician Assistant Medical; Emergency Provider Emergency Medicine Emergency Medical Services
DX: N62 Hypertrophy of breast (principal); N64.4 Mastodynia; F17.210 Nicotine dependence, cigarettes, uncomplicated; Z79.899 Other long term (current) drug therapy
CPT/HCPCS: 36415; 76604; 80053; 85025; 85652; 86140; 99282; 99284

== ENCOUNTER 2023-07-15 12:55 | Outpatient (AMB) | payer OTHER, SELFPAY ==
--- NOTE | 2023-07-15 13:09 | A.OFFVIS_ITS ---
Intake Vital Signs 3 07/15/23 13:16 Height 6 ft Weight 138 lb 2 oz BMI 18.7 BP 134/79 Blood Pressure Location Lt brachial Position Sitting Pulse 70 Intake Visit Reasons: gynecomastia Intake Note: Patient is seen in office for ER follow up visit, following gynecomastia. Pt c/o: feels a lump in the left nipple for the past couple weeks, tender to the touch, denies redness, discharge or other concerns Cut Out Operator Required: No Accompanied by: Self / Same As Patient Allergies No Known Allergies Allergy (Verified 07/12/23 15:25) Medication List - Last Reconciled 07/15/23 by Rene Mcfarland MD No Known Home Meds HPI HPI Comments 2 History of Present Illness0 Details 22-year-old male patient presenting for evaluation of a left breast lump. He is uncertain when this began but noted the lump to gradually increase in size and cause increased discomfort over the past year. He denies any history of trauma or any new medications. His past history is significant for spontaneous pneumothorax. 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 He underwent an ultrasound of the left breast which revealed an asymmetric soft tissue prominence which may indicate florid gynecomastia. [facility] Medical History No known health problems Social History Household Members: Significant Other Housing: Apartment Do you presently have visiting nurse or other home services: No Patient Tobacco Use Status: Current everyday Tobacco user Cigarettes Per Day: 3 Substance Use Type: Marijuana service: No Current occupational status: employed Review of Systems Const All systems reviewed & are unremarkable except as noted in HPI and below Physical Exam Vital Signs: Last Vital Signs Pulse 70 07/15/23 13:16 BP 134/79 07/15/23 13:16 BMI result Body Mass Index 18.7 Const General: cooperative Nutritional Appearance: well nourished Orientation/consciousness: patient oriented x3 Limitations: no limitations HEENT Head: Yes normocephalic and Yes atraumatic Chest Other: Left breast: Palpable nodule located just below the nipple-areolar complex, mobile within the subcutaneous tissue with a rubbery consistency most consistent with gynecomastia. No hard areas are noted within the density. No other palpable masses or enlarged lymph nodes are appreciated. No skin changes or nipple discharge could be expressed. Right breast: No palpable mass, skin change, nipple discharge or enlarged lymph nodes. Chest/axillae images: 2 1. Mass located symmetrically below the nipple-areolar complex. GI Inspection: Yes normal to inspection Skin General skin exam: no rashes or lesions noted Neuro General: patient oriented x3 Extrem General: Yes no clubbing, cyanosis or edema Assessment & Plan Assessment & Plan (1) Gynecomastia: Code(s): N62 - Hypertrophy of breast Plan 22-year-old male patient presenting with a soft tissue mass located below the left nipple which is rubbery in consistency and most consistent with a unilateral gynecomastia. There is minimal tenderness to palpation. No other suspicious findings are identified. We discussed possibility of excision of the lesion especially the lesion remains painful. As he is deploying in the near future, this could be delayed until after a returns. He expressed understanding and agrees with the plan. Coding Level of Care Code New Pt Level 4 (74243) Diagnoses Gynecomastia N62
[2023-07-15 13:16] VITALS: BP 134/79; PULSE 70; BMI 18.7
== END 2023-07-15 13:16 | disposition home or self-care (01) ==
PROVIDERS: Visit Provider Surgery
DX: N62 Hypertrophy of breast (principal)
CPT/HCPCS: 99204

== ENCOUNTER → 2023-07-15 12:55 | Outpatient (BNVA) | payer OTHER, SELFPAY | PROVIDERS: Visit Provider Surgery | DX: N62 Hypertrophy of breast (principal) | CPT/HCPCS: 99202 ==